=== PATIENT | female | born 1945 | race Caucasian/White ===

== ENCOUNTER → 2016-09-25 | Outpatient (REF) | payer MEDICARE ==
[2016-09-25 18:30] LABS: IMMUNOGLOBULIN A 44.8 MG/DL (70-400)
== END ==
LOC: M LAB REF 16:30
DX: D50.9 Iron deficiency anemia, unspecified (principal)

== ENCOUNTER → 2019-09-21 | Outpatient (REF) | payer MEDICARE ==
[2019-09-25 18:29] LABS: PERCENT SATURATION 16.3 % (13.2-45.0)
== END ==
LOC: M LAB REF 16:47
PROVIDERS: ATTEND Family Medicine
DX: D50.9 Iron deficiency anemia, unspecified (principal)

== ENCOUNTER → 2023-12-16 | Outpatient (CLI) | payer MEDICARE | LOC: M WUC 13:18 | PROVIDERS: ATTEND Family Medicine | DX: M25.562 Pain in left knee (principal) ==

== ENCOUNTER → 2023-12-16 | Outpatient (REF) | payer MEDICARE | LOC: M LAB REF 12:01 | PROVIDERS: ATTEND Family Medicine | DX: M25.562 Pain in left knee (principal) ==